=== PATIENT | female | born 1975 | race Caucasian/White ===

== ENCOUNTER → 2017-10-23 | Outpatient (CLI) | payer SELFPAY ==
[~2017-10-23] MED LIST: HYDR-34 PO; SULF1TAB38 PO; [UNRECOGNIZED DRUG - REMARK] PO
[2017-10-23 20:10] VITALS: BP 141/95
== END ==
LOC: FNS 20:05
PROVIDERS: ATTEND Emergency Medicine
DX: Z02.89 Encounter for other administrative examinations (principal)